=== PATIENT | female | born 1980 | race Caucasian/White ===

== ENCOUNTER 2018-06-11 19:05 | Emergency (ER) | payer MEDICAID ==
[2018-06-11] MEDS ORDERED: ORPHENADRINE CITRATE 30 MG/ML ML ONE (20:47)
[2018-06-11] MEDS ORDERED: DEXAMETHASONE SOD PHOSPHATE 10MG/ML 1ML VIAL ONE (20:47)
[2018-06-11] MEDS ORDERED: ACETAMINOPHEN-CODEINE 300/30MG TAB ONE (20:57)
== END 2018-06-11 21:14 | disposition home or self-care (01) ==
LOC: EDH 19:05
DX: S33.5XXA Sprain of ligaments of lumbar spine, initial encounter (principal); G89.29 Other chronic pain; M54.5 Low back pain; E11.9 Type 2 diabetes mellitus without complications; Z79.4 Long term (current) use of insulin; Z98.890 Other specified postprocedural states; W18.39XA Other fall on same level, initial encounter; Y93.01 Activity, walking, marching and hiking; Y92.89 Other specified places as the place of occurrence of the external cause; Y99.8 Other external cause status
CPT/HCPCS: 72100; 81025; 96372 ×2; 99284; J1100; J2360